=== PATIENT | male | born 1995 | race Caucasian/White ===

== ENCOUNTER 2018-10-06 02:41 | Emergency (ER) | payer OTHER ==
[2018-10-06] MEDS ORDERED: LIDOCAINE 1% INJ-PF (10 MG/ML) 30 ML SDV INJ ONE (04:00)
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
[2018-10-06] MEDS ORDERED: BACITRACIN ZINC OINTMENT 15 GM TP ONE (05:10)
[2018-10-06] MEDS ORDERED: BACITRACIN ZINC OINTMENT 15 GM ONE (05:21)
[2018-10-06 05:54] VITALS: BP 148/87
== END 2018-10-06 05:54 | disposition home or self-care (01) ==
LOC: ER 02:41
DX: S01.81XA Laceration without foreign body of other part of head, initial encounter (principal); S01.21XA Laceration without foreign body of nose, initial encounter; V19.9XXA Pedal cyclist (driver) (passenger) injured in unspecified traffic accident, initial encounter; Y93.55 Activity, bike riding; F10.120 Alcohol abuse with intoxication, uncomplicated
CPT/HCPCS: 12014; 99282; J3490

== ENCOUNTER 2018-10-14 13:07 | Emergency (ER) | payer OTHER ==
[2018-10-14] MEDS ORDERED: CEPHALEXIN 500 MG CAPSULE PO ONE (14:24)
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
[2018-10-14 14:33] VITALS: BP 128/89
== END 2018-10-14 14:39 | disposition home or self-care (01) ==
LOC: ER 13:07
DX: S01.81XD Laceration without foreign body of other part of head, subsequent encounter (principal); X58.XXXD Exposure to other specified factors, subsequent encounter